=== PATIENT | female | born 1990 | race Caucasian/White ===

== ENCOUNTER 2017-01-30 21:26 | Inpatient (IN) | payer BC, OTHER ==
[~2017-01-30] VITALS: Ht 160 cm; Wt 59.0 kg
[2017-01-30] MEDS ORDERED: PROMETHAZINE HCL 25 MG/1 ML VIAL IM PRN (23:15)
[2017-01-30] MEDS ORDERED: HYDROXYZINE PAMOATE 25 MG CAPSULE PO PRN (23:15)
[2017-01-30] MEDS ORDERED: MAGNESIUM HYDROXIDE 30 ML LIQUID UDC PO PRN (23:15)
[2017-01-30] MEDS ORDERED: diphenhydrAMINE 50 MG CAPSULE PO PRN (23:15)
[2017-01-30] MEDS ORDERED: LORAZEPAM 2 MG/1 ML VIAL IM PRN (23:15)
[2017-01-30] MEDS ORDERED: LORAZEPAM 1 MG TABLET PO PRN ×2 (23:15)
[2017-01-30] MEDS ORDERED: ONDANSETRON ODT 4 MG TAB.RAPDIS SL PRN (23:15)
[2017-01-30] MEDS ORDERED: CLONIDINE HCL 0.1 MG TABLET PO PRN (23:15)
[2017-01-30] MEDS ORDERED: ACETAMINOPHEN 325 MG TABLET PO PRN (23:15)
[2017-01-30] MEDS ORDERED: MAG HYDROX/AL HYDROX/SIMETH 30 ML LIQUID UDC PO PRN (23:15)
[2017-01-30] MEDS ORDERED: MIRALAX 17 GM POWD.PACK PO PRN (23:15)
[2017-01-30] MEDS ORDERED: METHOCARBAMOL 750 MG TABLET PO PRN (23:15)
[2017-01-30] MEDS ORDERED: DICYCLOMINE HCL 20 MG TABLET PO PRN (23:15)
[2017-01-30] MEDS ORDERED: LOPERAMIDE HCL 2 MG CAPSULE PO PRN ×2 (23:15)
[2017-01-30 23:41] LABS: *URINE HCG, QUAL NEGATIVE (NEGATIVE)
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
[2017-01-30 23:54] LABS: *AMPHETAMINE, URINE NEGATIVE (NEGATIVE); *BARBITURATE, URINE NEGATIVE (NEGATIVE); *CANNABINOID, URINE NEGATIVE (NEGATIVE); *COCCAINE, URINE NEGATIVE (NEGATIVE); *OPIATE, URINE POSITIVE (NEGATIVE); *PHENCYCLIDINE SCREEN,URINE NEGATIVE (NEGATIVE)
[2017-01-31] VITALS: BP 114/57
--- NOTE | 2017-01-31 00:05 | NUR ---
NURSING NOTE Pt refused lab draw. Pt stated " No, I want to sleep. I'll do it in the morning." Risks/benefits explained x3 pt still refused. Will continue to monitor.
[2017-01-31] MEDS ORDERED: QUET100T PO (03:32)
[2017-01-31] MEDS ORDERED: PROP10TA10 PO (03:32)
[2017-01-31] MEDS ORDERED: TRAZ-147 PO (03:32)
[2017-01-31] MEDS ORDERED: DOXY100T2 PO (03:32)
[2017-01-31] MEDS ORDERED: GABA600T2 PO (03:32)
[2017-01-31] MEDS ORDERED: ESCI20TA PO (03:32)
--- NOTE | 2017-01-31 04:00 | NUR ---
VITALS 0400 vitals were refused by pt. Breathing even and unlabored, safety measures in place. Will continue to monitor.
--- NOTE | 2017-01-31 07:17 | NUR ---
END OF SHIFT Pt is a 26 year old female admitted on 01/30/17 for Xanax and Heroin dependency. Pt is full code with NKA. She reports a PMHx of anxiety, depression, ADD, hep C and PTSD. She did not receive or request PRN medications. She slept a total of 6 hrs, Intake:500mL, Void: x1 BM:0 COWS:3, CIWA:5. Pt is safe with bed locked in lowest position, side rails up x2 and call light within reach. Endorsed to oncoming shift.
--- NOTE | 2017-01-31 07:45 | NUR ---
START OF SHIFT: REPORT RECEIVED FROM STATE AUDITOR NURSE. PT IS A 26 YO FEMALE ADMITTED ON 01/30/17 FOR TAKING XANAX 4-6MG/DAY AND HEROIN 1.5GM/DAY FOR 9 DAYS; PT ALSO USED 24MG SUBOXONE ON THE DAY OF ADMISSION. LAST STATE AUDITOR COWS=3, CIWA=5. PT REPORTS MED HX HEP-C+; PSYCH HX ANXIETY, DEPRESSION, ADD, PTSD. FULL CODE, REGULAR DIET. NKA. PT SLEPT 6 HOURS LAST NIGHT. PT REFUSED ADMISSION LABS. STATE AUDITOR ENDORSED MRSA SWAB AND SIGNATURE FOR HOME MEDS. PT IS CURRENTLY IN BED, NOTED WITH DIAPHORESIS, RESTLESSNESS. ALL SAFETY PRECAUTIONS ARE IN PLACE.
[2017-01-31 08:00] VITALS: BP 92/49
[2017-01-31 08:15] LABS: ETHANOL < 3 MG/DL (0-0)
[2017-01-31 08:21] LABS: ALANINE AMINOTRANSFERASE 114 U/L (14-59); ALBUMIN 3.1 g/dL (3.4-5.0); ALKALINE PHOSPHATASE 60 U/L (50-136); ASPARTATE AMINOTRANSFERASE 45 U/L (15-37); BILIRUBIN,TOTAL 0.2 mg/dL (0.2-1.0); CALCIUM 8.4 mg/dL (8.5-10.1); CARBON DIOXIDE 25 mmol/L (21-32); CHLORIDE 109 mmol/L (98-107); CREATININE 0.9 mg/dL (0.6-1.3); GFR 75 mL/min (>60); GLUCOSE 98 mg/dL (74-106); MAGNESIUM 2.1 mg/dL (1.8-2.4); POTASSIUM 3.8 mmol/L (3.5-5.1); SODIUM SERUM 143 mmol/L (136-145); TOTAL PROTEIN, SERUM 6.8 g/dL (6.4-8.2); UREA NITROGEN, BLOOD 7 mg/dL (7-18)
[2017-01-31 08:41] LABS: HEMATOCRIT 34.4 % (37.0-47.0); HEMOGLOBIN 11.4 g/dL (12.0-16.0); MEAN CORPUSCULAR HEMOGLOBIN 28.4 uug (27.0-31.0); MEAN CORPUSCULAR HGB CONC 33 g/dL (32.0-37.0); MEAN CORPUSCULAR VOLUME 85.7 fL (81.0-99.0); PLATELET COUNT (AUTO) 216 K/uL (150-450); RED BLOOD CELL COUNT(AUTO) 4.02 MIL/uL (4.20-5.40); RED CELL DISTRIBUTION WIDTH 14.6 % (11.5-14.5); WHITE BLOOD COUNT (AUTO) 5.7 K/uL (4.0-11.2)
[2017-01-31 08:50] LABS: HIV-1 p24 ANTIGEN NON REACTIVE (NONREACTIVE); HIV-1/2 ANTIBODY NON REACTIVE (NONREACTIVE)
[2017-01-31] MEDS ORDERED: TUBERCULIN,PURIF.PROT.DERIV. 5 TU/0.1 ML TEST ID ONE (09:00)
[2017-01-31] MEDS: MULTIVITAMINS,THERAPEUTIC TABLET PO SCH (09:11)
[2017-01-31] MEDS: IBUPROFEN 600 MG TABLET PO PRN (09:12)
--- NOTE | 2017-01-31 09:12 | NUR ---
PRN'S ATIVAN, BENTYL, MOTRIN, ROBAXIN PT C/O ANXIETY, AGITATION, DIAPHORESIS. CIWA IS 10. ADMINISTERED PRN ATIVAN 1MG ORDERED. PT C/O STOMACH CRAMPS. ADMINISTERED PRN BENTYL ORDERED. PT C/O 7/10 GENERALIZED PAIN. ADMINISTERED PRN MOTRIN ORDERED. PT C/O MYALGIA. ADMINISTERED PRN ROBAXIN ORDERED. WILL CONTINUE TO MONITOR.
--- NOTE | 2017-01-31 09:13 | NUR ---
PPD ADMINISTERED: PPD ADMINISTERED IN LEFT FOREARM. PT TOLERATED PROCEDURE WELL.
--- NOTE | 2017-01-31 10:15 | NUR ---
REASSESSMENT: PT REPORTS THAT PRN MOTRIN, PRN ROBAXIN, AND PRN BENTYL NOT EFFECTIVE. WILL ADMINISTER PRN SUBUTEX. PT REPORTS THAT ANXIETY AND AGITATION HAVE IMPROVED. CIWA SCORE DECREASED FROM 10 TO 4. PRN ATIVAN EFFECTIVE.
[2017-01-31] MEDS: BUPRENORPHINE HCL 2 MG TAB.SUBL SL PRN ×2 (10:27→15:20)
--- NOTE | 2017-01-31 10:27 | NUR ---
PRN SUBUTEX: PT C/O DIAPHORESIS, ANXIETY, AGITATION, RUNNY NOSE. COWS IS 12. ADMINISTERED PRN SUBUTEX 4MG ORDERED. WILL CONTINUE TO MONITOR.
[2017-01-31 10:55] LABS: EOSINOPHILS % (MANUAL) 6 % (0-8); LYMPHOCYTES % (MANUAL) 52 % (20-40); MONOCYTES % (MANUAL) 11 % (2-10); NEUTROPHILS % (MANUAL) 31 % (42-75)
[2017-01-31 10:56] LABS: ANISOCYTOSIS 1+; PLATELET ESTIMATE ADEQUATE
--- NOTE | 2017-01-31 11:00 | NUR ---
REASSESSMENT: PT REPORTS THAT PRN SUBUTEX 4MG IS EFFECTIVE. COWS DECREASED FROM 12 TO 3. PRN SUBUTEX EFFECTIVE. WILL CONTINUE TO MONITOR.
[2017-01-31 12:00] VITALS: BP 120/73
[2017-01-31] MEDS ORDERED: Medication Not On Formulary EA (Escitalopram Oxalate (Lexapro) 1 TAB) PO SCH (15:00)
[2017-01-31] MEDS: ESCITALOPRAM OXALATE 10 MG TABLET PO SCH (15:20)
--- NOTE | 2017-01-31 15:20 | NUR ---
PRN SUBUTEX: PT C/O DIAPHORESIS, RESTLESSNESS, ANXIETY, AGITATION. COWS IS 13. ADMINISTERED PRN SUBUTEX ORDERED. WILL CONTINUE TO MONITOR.
[2017-01-31] MEDS ORDERED: BUPRENORPHINE HCL 2 MG TAB.SUBL SL PRN (15:45)
[2017-01-31] MEDS ORDERED: LORAZEPAM 1 MG TABLET PO PRN ×4 (15:45→17:45)
--- NOTE | 2017-01-31 15:55 | NUR ---
REASSESSMENT: PT REPORTS DECREASE IN GENERALIZED PAIN, RUNNY NOSE, DIAPHORESIS. COWS DECREASED FROM 13 TO 2. PRN SUBUTEX 4MG EFFECTIVE. WILL CONTINUE TO MONITOR.
[2017-01-31 16:00] VITALS: BP 123/73
[2017-01-31] MEDS ORDERED: NEOMY/BACITRAC/POLYMI OINT 28.35 GM TUBE TOP PRN (16:30)
[2017-01-31] MEDS ORDERED: GABAPENTIN 300 MG CAPSULE PO SCH ×3 (17:00→21:00)
[2017-01-31] MEDS ORDERED: Medication Not On Formulary EA (Gabapentin 1 TAB) PO SCH (17:00)
[2017-01-31] MEDS ORDERED: PROPRANOLOL HCL 10 MG TABLET PO SCH (17:00)
[2017-01-31] MEDS ORDERED: TRAZODONE 100 MG TABLET PO SCH (18:00)
[2017-01-31] MEDS ORDERED: QUETIAPINE FUMARATE 100 MG TABLET PO SCH (18:00)
--- NOTE | 2017-01-31 19:15 | NUR ---
START OF SHIFT Received 26 year old female patient admitted on 01/30/17 for Xanax, Heroin and Suboxone dependency. Pt is full code with NKA. She reports a PMHx of anxiety, depression, ADD, PTSD and hep C. She reports using Xanax PO 4-6 mg daily for 9 days. Last dose 2 mg on 01/30/17. Heroin IV 1.5 gram daily for 9 days. Last dose 0.5 gram on 01/30/17 at 0400. And suboxone 24 mg on 01/30/17. She is not placed on a taper but has PRN medications available. Per endorsement, she received PRN Ativan, Subutex, bentyl, and Robaxin. Pt is alert and oriented x4, breathing is even and unlabored. Pt safe with bed locked in lowest position, side rails up x2 and call light within reach. Will continue to monitor.
--- NOTE | 2017-01-31 19:19 | NUR ---
END OF SHIFT NOTE: PT IS A 26 YO FEMALE ADMITTED ON 01/30/17 FOR TAKING XANAX 4-6MG/DAY AND HEROIN 1.5GM/DAY FOR 9 DAYS; PT ALSO USED 24MG SUBOXONE ON THE DAY OF ADMISSION. PT REPORTS MED HX HEP-C+; PSYCH HX ANXIETY, DEPRESSION, ADD, PTSD. FULL CODE, REGULAR DIET. NKA. PT IS NOT ON A SCHEDULED TAPER: PRN SUBUTEX AND PRN ATIVAN AVAILABLE. PRN SUBUTEX WAS GIVEN TWICE THIS SHIFT FOR ELEVATED COWS SCORES; 10:27 DOSE BROUGHT COWS 12 DOWN TO 3, AND 15:20 DOSE BROUGHT COWS 13 DOWN TO 2. PRN ATIVAN WAS GIVEN AT 09:12 FOR CIWA 10, WHICH BROUGHT CIWA DOWN TO 4. PRN BENTYL WAS GIVEN FOR STOMACH CRAMPS, PRN MOTRIN WAS GIVEN FOR PAIN, AND PRN ROBAXIN WAS GIVEN FOR MYALGIA AT START OF SHIFT WHEN PRN SUBUTEX WAS UNABLE TO BE GIVEN D/T DECREASED BP. PPD WAS ADMINISTERED IN LEFT FOREARM. NEW ORDER FOR ATB OINTMENT FOR WOUND ON RLE; PHOTO PLACED IN CHART. PRIOR TO HANDOFF, LAST COWS=2, CIWA=4. PT CONSUMED 0% BREAKFAST, 100% OF LUNCH AND DINNER. INTAKE 580ML, URINE X5, BM X0.
[2017-01-31 20:00] VITALS: BP 116/75
[2017-01-31] MEDS: QUETIAPINE FUMARATE 100 MG TABLET PO SCH (20:15)
--- NOTE | 2017-01-31 20:15 | NUR ---
PRN ATIVAN Pt complains of anxiety and restlessness. CIWA:6. PRN Ativan 1 mg administered as ordered. Breathing even and unlabored. Safety measures in place. Will continue to monitor.
[2017-01-31] MEDS: TRAZODONE 100 MG TABLET PO SCH (21:00)
--- NOTE | 2017-01-31 21:15 | NUR ---
PRN ATIVAN REASSESSMENT PRN Ativan somewhat effective. Pt reports decreased anxiety. Noted with decreased agitation. CIWA:6. Breathing even and unlabored, safety measures in place. Will continue to monitor.
--- NOTE | 2017-01-31 21:30 | NUR ---
MEDICATION REFUSAL Pt refused 2100 dose of Trazodone. Pt stated " I don't want it." Risks/benefits explained x3. Pt still refused. Breathing even and unlabored, safety measures in place. Will continue to monitor.
--- NOTE | 2017-01-31 22:52 | NUR ---
PRN SUBUTEX Pt complains of chills/sweats and body aches. Pt noted to be agitated and restless in room. COWS:12, CIWA: 8. PRN Subutex 4 mg SL administered as ordered. Breathing even and unlabored, safety measures in place. Will continue to monitor effectiveness of medication.
--- NOTE | 2017-01-31 23:52 | NUR ---
PRN SUBUTEX REASSESSMENT PRN Subutex effective. Pt lying in bed with eyes closed noted to be asleep. Respirations 16, breathing is even and unlabored. Pt safe with bed locked in lowest position, side rails up x2 and call light within reach. Will continue to monitor.
--- NOTE | 2017-02-01 | NUR ---
VITALS 0000 vitals refused at beginning of shift. Pt lying in bed with eyes closed noted to be asleep. Respirations 16, breathing is even and unlabored, safety measures in place. Will continue to monitor. Addendum: 02/01/17 at 0313 by RAD DEE RN Amended: Links added.
--- NOTE | 2017-02-01 04:00 | NUR ---
VITALS 0400 vitals refused at beginning of shift. Pt lying in bed with eyes closed noted to be asleep. Respirations 16, breathing even and unlabored, safety measures in place. Will continue to monitor.
--- NOTE | 2017-02-01 07:17 | NUR ---
END OF SHIFT Pt is a 26 year old female patient admitted on 01/30/17 for Xanax, Heroin and Suboxone dependency. Pt is full code with NKA. She reports a PMHx of anxiety, depression, ADD, PTSD and hep C. She is not placed on a taper but has PRN medications available. She received PRN Ativan, and Subutex for documented CIWA: 8 and COWS:12. She slept a total of 7 hrs Intake: 591 mL, Void: x1, BM:0 COWS:12, CIWA: 8. Pt remains alert and oriented x4, breathing is even and unlabored. Pt safe with bed locked in lowest position, side rails up x2 and call light within reach. Endorsed to oncoming nurse.
--- NOTE | 2017-02-01 07:42 | NUR ---
START OF SHIFT Pt 26 y/o female admitted for for xanax and heroin. Pt received in room with eyes closed resting, on bed , but easily arousable to name. Pt alert and oriented to name, place, and time. Perrla. Skin warm and dry to touch. Respirations even and unlabored. Pt did not want to be disturbed at this time. Will come back. It was reported that pt slept for 7 hours last night. Bed on lowest position with side rails x2 up for safety. Call light within reach. No distress noted at this time.
[2017-02-01 08:00] VITALS: BP 90/55
[2017-02-01] MEDS ORDERED: GABAPENTIN 300 MG CAPSULE PO SCH (09:00)
[2017-02-01] MEDS: ESCITALOPRAM OXALATE 10 MG TABLET PO SCH (09:23)
[2017-02-01] MEDS: MULTIVITAMINS,THERAPEUTIC TABLET PO SCH (09:23)
[2017-02-01 12:00] VITALS: BP 100/60
[2017-02-01] MEDS ORDERED: KETOROLAC TROMETHAMINE 30 MG INJ IM PRN (12:00)
--- NOTE | 2017-02-01 14:00 | NUR ---
PRN Pt with c/o headache 02/14. Motrin po prn per MD order given and tolerated well.
[2017-02-01] MEDS: GABAPENTIN 300 MG CAPSULE PO SCH ×2 (14:07→22:09)
[2017-02-01] MEDS: CLONIDINE HCL 0.1 MG TABLET PO SCH ×2 (14:08→22:10)
[2017-02-01] MEDS: DICYCLOMINE HCL 20 MG TABLET PO SCH ×2 (14:08→22:09)
[2017-02-01] MEDS: BACLOFEN 20 MG TABLET PO SCH ×2 (14:08→22:10)
[2017-02-01] MEDS: IBUPROFEN 600 MG TABLET PO PRN (14:15)
--- NOTE | 2017-02-01 15:00 | NUR ---
BALDEV reich Pt observed walking around the hallway. No distress noted at this time.
[2017-02-01 16:00] VITALS: BP 100/54
--- NOTE | 2017-02-01 19:13 | NUR ---
END OF SHIFT Pt 26 y/o female admitted for for xanax and heroin. Pt alert and oriented to name, place, and time. Perrla. Skin warm and dry to touch. Respirations even and unlabored. Pt observed mostly in dining room today. Pt medication compliant and tolerated well. No ASE noted. Pt is scheduled to be discharged tomorrow. Bed on lowest position with side rails x2 up for safety. Call light within reach. No distress noted at this time.
[2017-02-01 20:00] VITALS: BP 112/65
--- NOTE | 2017-02-01 20:00 | NUR ---
START OF SHIFT NOTE: REPORT RECEIVED FROM DAY SHIFT NURSE. PT IS A 26YO FEMALE ADMITTED ON 01/30/17 FOR BZO AND OPIATE DEPENDENCE/WITHDRAWAL. PT REPORTS USING XANAX 4-6MG/DAY AND IV HEROIN 1.5GM/DAY FOR 9 DAYS. LAST DAY SHIFT COWS=2, CIWA=4. PT IS TO DISCHARGE TOMORROW; DISCHARGE UDS COLLECTION AND RESULTS PRINTED ENDORSED FROM DAY SHIFT. PT REPORTS MED HX OF HEP-C+; PSYCH HX ANXIETY, DEPRESSION, ADD, PTSD. PT IS A FULL CODE, ON A REGULAR DIET, AND REPORTS NKA. PT HAS WOUND ON RIGHT CALF; DISCHARGE PHOTO ENDORSED FROM DAY SHIFT. TB TO BE READ IN THE AM PRIOR TO DISCHARGE. PT IS CURRENTLY IN GROUP. WILL CONTINUE TO MONITOR.
[2017-02-01] MEDS: QUETIAPINE FUMARATE 100 MG TABLET PO SCH (22:10)
[2017-02-01] MEDS: TRAZODONE 100 MG TABLET PO SCH (22:10)
[2017-02-01] MEDS ORDERED: Trazodone Hcl PO (22:52)
[2017-02-01] MEDS ORDERED: HYDR-3895 PO (22:52)
[2017-02-01] MEDS ORDERED: Baclofen PO (22:52)
[2017-02-01] MEDS ORDERED: CLON0.1T14 PO (22:52)
[2017-02-01] MEDS ORDERED: DICY20TA28 PO (22:52)
[2017-02-01] MEDS ORDERED: DIPH50CA37 PO (22:52)
[2017-02-01] MEDS ORDERED: Gabapentin PO (22:52)
[2017-02-01] MEDS ORDERED: Ibuprofen PO (22:52)
[2017-02-01] MEDS ORDERED: QUET100T PO (22:52)
--- NOTE | 2017-02-02 | NUR ---
VITALS/COWS/CIWA REFUSED: PT REFUSES ORDERED 00:00 VITALS AND COWS/CIWA ASSESSMENTS. PT EDUCATED ON RISKS AND BENEFITS. ALL SAFETY PRECAUTIONS ARE IN PLACE. WILL CONTINUE TO MONITOR. Addendum: 02/02/17 at 0212 by AKI BURKETT RN Amended: Links added.
--- NOTE | 2017-02-02 04:00 | NUR ---
VITALS & COWS/CIWA REFUSED: PT REFUSES ORDERED 04:00 VITALS AND COWS/CIWA ASSESSMENTS. PT EDUCATED ON RISKS AND BENEFITS BUT CONTINUED TO REFUSE. ALL SAFETY PRECAUTIONS ARE IN PLACE. WILL CONTINUE TO MONITOR. Addendum: 02/02/17 at 0711 by AKI BURKETT RN Amended: Links added.
--- NOTE | 2017-02-02 07:17 | NUR ---
END OF SHIFT NOTE: PT IS A 26YO FEMALE ADMITTED TO [facility] ON 01/30/17 FOR BZO AND OPIATE DEPENDENCE AND WITHDRAWAL. PT REPORTS USING XANAX 4-6MG/DAY AND IV HEROIN 1.5GM/DAY FOR 9 DAYS. LAST COWS=3, CIWA=3 AT 20:00; NO PRN MEDICATIONS WERE GIVEN THIS SHIFT. PT C/O WITHDRAWAL SYMPTOMS, BUT REFUSED ALL NON-CONTROLLED MEDICATION. PT'S COMPLAINTS ARE OUT OF PROPORTION TO OBJECTIVE S/S OF WITHDRAWAL. PT VERBALIZED AGITATION REGARDING NOT RECEIVING ADDITIONAL SUBUTEX. PT IS TO DISCHARGE TOMORROW; PT UNABLE TO PROVIDE URINE SPECIMEN THIS SHIFT FOR DISCHARGE UDS; WILL ENDORSE TO DAY SHIFT NURSE. PT REPORTS MED HX OF HEP-C+; PSYCH HX ANXIETY, DEPRESSION, ADD, PTSD. PT IS A FULL CODE, ON A REGULAR DIET, AND REPORTS NKA. PT HAS WOUND ON RIGHT CALF; DISCHARGE PHOTO WOUND DOCUMENTATION PLACED IN CHART. TB TO BE READ IN THE AM PRIOR TO DISCHARGE. TOTAL FLUID INTAKE THIS SHIFT: 946ML, OUTPUT: URINE X1, BM X0. VSS THIS SHIFT. PT IS CURRENTLY IN BED AND SLEPT FOR 8 HOURS THIS SHIFT. ALL SAFETY PRECAUTIONS ARE IN PLACE. ALL NEEDS ATTENDED AND MET. WILL ENDORSE TO DAY SHIFT NURSE.
--- NOTE | 2017-02-02 07:30 | NUR ---
start of shift note: received pt from computer language coder nurse, pt is admitted to [facility] for benzo/opiate withdrawal/dependence. will assist pt in discharging and will continue to meet pt's needs. at this time pt is in stable condition no s/s of pain or discomfort.
[2017-02-02 10:06] LABS: *AMPHETAMINE, URINE NEGATIVE (NEGATIVE); *BARBITURATE, URINE NEGATIVE (NEGATIVE); *CANNABINOID, URINE NEGATIVE (NEGATIVE); *COCCAINE, URINE NEGATIVE (NEGATIVE); *OPIATE, URINE NEGATIVE (NEGATIVE); *PHENCYCLIDINE SCREEN,URINE NEGATIVE (NEGATIVE)
[2017-02-02] MEDS: ESCITALOPRAM OXALATE 10 MG TABLET PO SCH (10:13)
[2017-02-02] MEDS: MULTIVITAMINS,THERAPEUTIC TABLET PO SCH (10:13)
[2017-02-02 10:14] VITALS: BP 104/60
[2017-02-02] MEDS: DICYCLOMINE HCL 20 MG TABLET PO SCH (10:14)
[2017-02-02] MEDS: CLONIDINE HCL 0.1 MG TABLET PO SCH (10:14)
[2017-02-02] MEDS: GABAPENTIN 300 MG CAPSULE PO SCH (10:14)
[2017-02-02] MEDS: BACLOFEN 20 MG TABLET PO SCH (10:14)
--- NOTE | 2017-02-02 13:45 | NUR ---
discharge note: pt left the unit in stable condition no s/s of pain or discomfort, or any withdrawal symptoms. pt teaching administered and pt verbalized understanding. pt was discharged with all personal belongings. pt will be transferred to [facility] via private car.
[2017-02-02 16:14] LABS: HCV AB >11.0 s/co ratio (0.0-0.9)
== END 2017-02-02 13:45 | disposition home or self-care (01) | DRG 895 ==
LOC: SRC 22:38
PROVIDERS: ADMIT Internal Medicine; ATTEND Internal Medicine
PROC: HZ2ZZZZ Detoxification Services for Substance Abuse Treatment (ICD-10-PCS; principal; 2017-01-30)
PROC: HZ31ZZZ Individual Counseling for Substance Abuse Treatment, Behavioral (ICD-10-PCS; 2017-02-01)
DX: F11.23 Opioid dependence with withdrawal (principal); F33.2 Major depressive disorder, recurrent severe without psychotic features; F13.230 Sedative, hypnotic or anxiolytic dependence with withdrawal, uncomplicated; Z81.1 Family history of alcohol abuse and dependence; F14.10 Cocaine abuse, uncomplicated; F17.210 Nicotine dependence, cigarettes, uncomplicated; Z59.1 Inadequate housing; G47.00 Insomnia, unspecified; F41.9 Anxiety disorder, unspecified; B19.20 Unspecified viral hepatitis C without hepatic coma; F90.9 Attention-deficit hyperactivity disorder, unspecified type; Z79.899 Other long term (current) drug therapy
CPT/HCPCS: 36415; 80307; 80361; 83735; 84703; 85025; 86580; 86592; 86705; 86803; 87340; 87806; G6040-TC